=== PATIENT | female | born 1970 | race Asian ===

== ENCOUNTER 2019-07-19 19:48 | Emergency (ER) | payer OTHER ==
[~2019-07-19] VITALS: Ht 162.6 cm; Wt 56.7 kg
[2019-07-19 20:10] VITALS: BP 135/82
--- NOTE | 2019-07-19 20:10 | NUR ---
ED Nurse Note: Patient walked in from home to ED d/t left hand laceration, pt was cooking and sliced the space between thumb and pointer finger with knife. Patient aao x 4 and ambulatory with steady gait. Patient pain 5/10. Patient stable upon assessment.
[2019-07-19] MEDS ORDERED: Tetanus/Diptheria/Pertussis IM ONE (20:30)
[2019-07-19] MEDS ORDERED: Lidocaine 2% 20mg/ml/EPI 0.01mg/ml 20ml INJ ONE (20:30)
[2019-07-19] MEDS ORDERED: Bacitracin Oint UD TOPIC ONE (20:45)
--- NOTE | 2019-07-19 20:53 | Emergency Room Report ---
History of Present Illness General Chief Complaint: Laceration Source: Patient Present Illness HPI 48-year-old female presents to the emergency department complaining of 5 out of 10 severity pain, bleeding and open laceration to the webbing of the first and second digit of the left hand x1 day. Patient reports she unintentionally cut herself with a knife while shucking oysters. Patient states she is not sure when her last tetanus vaccination was but estimates it to be more than 5 years. Patient denies taking any medications prior to arrival. Patient reports she rinsed the wound under running water. She denies taking blood thinning medications. She denies any other symptoms at this time. Patient reports she has full movement of the fingers of the left hand. She denies paresthesias. She denies intentional self harm. She reports that she is right hand dominant. No other aggravating or relieving factors. COVID-19 risk:Travel to affect: No Allergies: Coded Allergies: No Known Allergies (Unverified , 07/19/19) Patient History Past Medical History: see triage record Past Surgical History: none Pertinent Family History: none Last Menstrual Period: na Now: No Reviewed Nursing Documentation: PMH: Agreed; PSxH: Agreed Nursing Documentation-PMH Past Medical History: No Stated History Review of Systems All Other Systems: negative except mentioned in HPI Physical Exam Vital Signs Date Time Temp Pulse Resp B/P (MAP) Pulse Ox O2 Delivery O2 Flow Rate FiO2 07/19/19 20:00 97.9 87 16 138/83 (101) 98 Room Air Sp02 EP Interpretation: reviewed, normal General Appearance: no apparent distress, alert, GCS 15, non-toxic Head: normocephalic, atraumatic Eyes: bilateral eye normal inspection, bilateral eye PERRL ENT: hearing grossly normal, normal voice Neck: full range of motion Respiratory: lungs clear, normal breath sounds, speaking full sentences Cardiovascular #1: regular rate, rhythm, normal capillary refill Musculoskeletal: back normal, normal range of motion, gait/station normal, non- tender Neurologic: alert, motor strength/tone normal, oriented x3, sensory intact, responsive, speech normal Psychiatric: judgement/insight normal Skin: laceration - Laceration/puncture to the webbing between the 1st and 2nd digit of the left hand approx 1 cm in length. NO evidence of tendon involvement. NVI. Procedures Laceration/Wound Repair Laceration/Wound Repair : Consent: Verbal Wound Location: upper extremity - left hand Wound's Depth, Shape: linear Wound Length (cm): 1 Wound Explored: clean Irrigated w/ Saline (ccs): 500 Betadine Prep?: Yes Anesthesia: Lidocaine w/ Epi Volume Anesthetic (ccs): 2 Wound Repaired With: sutures Suture Size/Type: 6:0 Number of Sutures: 5 Layer Closure?: No Sterile Dressing Applied?: Yes Splint Applied?: Yes - thumb spika Type of Splint Applied: Thumb spika Sling Applied?: No Patient Tolerated: Well Complications: None Medical Decision Making PA Attestation Dr. West Is my supervising Physician whom patient management has been discussed with. Diagnostic Impression: Primary Impression: Laceration ER Course 48-year-old female presents to the emergency department complaining of 5 out of 10 severity pain, bleeding and open laceration to the webbing of the first and second digit of the left hand x1 day. Patient reports she unintentionally cut herself with a knife while shucking oysters. Patient states she is not sure when her last tetanus vaccination was but estimates it to be more than 5 years. Patient denies taking any medications prior to arrival. Patient reports she rinsed the wound under running water. She denies taking blood thinning medications. She denies any other symptoms at this time. Patient reports she has full movement of the fingers of the left hand. She denies paresthesias. She denies intentional self harm. She reports that she is right hand dominant. No other aggravating or relieving factors. Ddx considered but are not limited to laceration, tendon injury, cellulitis, amputation Vital signs: are WNL, pt. is afebrile H&PE are most consistent with: Laceration/puncture to the webbing between the 1st and 2nd digit of the left hand approx 1 cm in length. NO evidence of tendon involvement. NVI. ORDERS: none required at this time, the diagnosis is clinical ED INTERVENTIONS: -Tetanus vaccine was administered as pt. vaccination status was unknown. - The wound was copiously irrigated with normal saline, and explored for foreign body for which no FB was found. - pt. is anesthetized with 1%lidocaine w. epi. - The wound was approximated and closed using 5 interrupted 6.0 Ethilon sutures. -Bacitracin and sterile dressing is applied. Left thumb spica splint applied by technology professional. Pt. remains neurovascularly intact. Discussed with patient: That we make every effort to approximate the laceration as best as we can so that scarring will be as cosmetically pleasing as possible with our limited cosmetic skill set in the Emergency dept. Regardless of our best efforts there will be scarring after laceration repair. The extent of scarring is unknown at this time. DISCHARGE: At this time pt. is stable for d/c to home. Will provide printed patient care instructions, and any necessary prescriptions. Care plan and follow up instructions have been discussed with the patient prior to discharge. Last Vital Signs Date Time Temp Pulse Resp B/P (MAP) Pulse Ox O2 Delivery O2 Flow Rate FiO2 07/19/19 20:00 97.9 87 16 138/83 (101) 98 Room Air Disposition: HOME, SELF-CARE Condition: Stable Scripts Bacitracin (Bacitracin) 28.4 Gm Oint...g. 1 APPLIC TOPIC THREE TIMES A DAY, #28.3 GM Prov: Betty Chow 07/19/19 Cephalexin* (KEFLEX*) 500 Mg Capsule 500 MG ORAL EVERY 12 HOURS for 7 Days, #14 CAP 0 Refills Prov: Betty Chow 07/19/19 Patient Instructions: Laceration Care, Adult Additional Instructions: Take medications as directed. SUTURES to BE REMOVED in 14 DAYS LIMIT USE OF LEFT HAND until then. Follow up with a Primary Care Provider in 3-5 days, even if your symptoms have resolved. Return sooner to ED if new symptoms occur, or current symptoms become worse. - Please note that this Emergency Department Report was dictated using [employer] purchasing technology software, occasionally this can lead to erroneous entry secondary to interpretation by the dictation equipment. Betty Chow Jul 19, 2019 20:53
--- NOTE | 2019-07-19 21:02 | NUR ---
ED Nurse Note: ER PA at bedside.
[2019-07-19] MEDS ORDERED: CEPHALEXIN500 MG ORAL (21:24)
[2019-07-19] MEDS ORDERED: BACITRACIN15 GM TOPIC (21:24)
[2019-07-19 21:40] VITALS: BP 132/79
--- NOTE | 2019-07-19 21:40 | NUR ---
ER DISCHARGE NOTE: Patient is cleared to be discharged per ERMD, pt is aox4, on room air, with stable vital signs. pt was given dc and prescription instructions, pt was able to verbalize understanding, pt id band removed. pt is able to ambulate with steady gait. pt took all belongings. laboratory technologist applied thumb spika cast. pt stable upon discharge.
== END 2019-07-19 21:40 | disposition home or self-care (01) ==
LOC: EMR 20:38
DX: S61.412A Laceration without foreign body of left hand, initial encounter (principal); Z23 Encounter for immunization; W26.0XXA Contact with knife, initial encounter; Y92.9 Unspecified place or not applicable
CPT/HCPCS: 90471; 90715; 99283